=== PATIENT | female | born 1995 | race Caucasian/White ===

== ENCOUNTER 2021-06-25 08:28 | Emergency (ER) | payer OTHER ==
[2021-06-25 10:29] LABS: BASOPHIL 0.5 % (0-2); EOSINOPHIL 1.1 % (0-5); HCT 41.7 % (37.0-47.0); HGB 14.3 g/dl (12.5-16.0); LYMPHOCYTE 25.9 % (15-48); MCH 30.4 pg (25.0-31.0); MCHC 34.3 g/dL (32.0-36.0); MCV 88.5 fL (78.0-100.0); MPV 11.1 fL (6.0-9.5); NEUTROPHIL 64.3 % (41-80); NRBC 0; PLT 289 K/uL (150-400); RBC 4.71 M/uL (4.20-5.40); WBC 6.5 K/uL (4.0-10.5)
[2021-06-25 10:43] LABS: IRON % SATURATION 32.7 %SAT (20-50)
[2021-06-25 10:53] LABS: ALBUMIN 3.9 g/dL (3.4-5.0); BILIRUBIN - TOTAL 0.4 mg/dL (0.2-1.0); BUN/CREAT RATIO (CALC) 12.3 RATIO; C-REACTIVE PROTEIN 0.3 mg/dL (<=0.90); CREATININE 0.65 mg/dL (0.51-0.95); FT4 (FREE T4) 0.8 ng/dL (0.76-1.46); GLOBULIN (CALCULATION) 3.5 g/dL; MAGNESIUM 1.9 mg/dL (1.8-2.4); POTASSIUM 3.7 mmol/L (3.5-5.1); TOTAL PROTEIN 7.4 g/dL (6.4-8.2)
[2021-06-25 11:25] LABS: BILIRUBIN NEGATIVE (NEGATIVE); BLOOD NEGATIVE Ery/uL (NEGATIVE); CLARITY HAZY (CLEAR); COLOR YELLOW (YELLOW); GLUCOSE (U) NORMAL (NORMAL); LEUKOCYTES NEGATIVE Leu/uL (NEGATIVE); NITRITE NEGATIVE (NEGATIVE); PROTEIN NEGATIVE (NEGATIVE); UROBILINOGEN 0.2 mg/dL (0.2-1.0)
[2021-06-25] MEDS ORDERED: ANTIVERT25 MG PO (12:58)
== END 2021-06-25 13:16 | disposition home or self-care (01) ==
LOC: FER 08:28
PROVIDERS: Emergency Medicine
DX: O99.891 Other specified diseases and conditions complicating pregnancy (principal); O99.281 Endocrine, nutritional and metabolic diseases complicating pregnancy, first trimester; O99.331 Smoking (tobacco) complicating pregnancy, first trimester; R42 Dizziness and giddiness; F17.210 Nicotine dependence, cigarettes, uncomplicated; Z3A.01 Less than 8 weeks gestation of pregnancy; Z88.0 Allergy status to penicillin; Z88.6 Allergy status to analgesic agent; Z88.8 Allergy status to other drugs, medicaments and biological substances
CPT/HCPCS: 36415; 76801; 80053; 81003; 82728; 83540; 83550; 83615; 83735; 84439; 84443; 84702; 85025; 86140; 93005

== ENCOUNTER 2021-08-05 07:22 | Emergency (ER) | payer OTHER ==
[~2021-08-05 07:22] MED LIST: ANTIVERT25 MG PO
[2021-08-05 08:44] LABS: BASOPHIL 0.2 % (0-2); EOSINOPHIL 0.4 % (0-5); HCT 40.6 % (37.0-47.0); HGB 13.9 g/dl (12.5-16.0); LYMPHOCYTE 3.4 % (15-48); MCH 30.1 pg (25.0-31.0); MCHC 34.2 g/dL (32.0-36.0); MCV 87.9 fL (78.0-100.0); MONOCYTE 5.9 % (0-12); MPV 10.6 fL (6.0-9.5); NEUTROPHIL 89.4 % (41-80); NRBC 0; PLT 204 K/uL (150-400); RBC 4.62 M/uL (4.20-5.40); RDW 12.6 % (11.5-14.0); WBC 8.5 K/uL (4.0-10.5)
[2021-08-05 08:48] LABS: BILIRUBIN NEGATIVE (NEGATIVE); BLOOD NEGATIVE Ery/uL (NEGATIVE); CLARITY CLEAR (CLEAR); COLOR YELLOW (YELLOW); GLUCOSE (U) NORMAL (NORMAL); LEUKOCYTES NEGATIVE Leu/uL (NEGATIVE); NITRITE NEGATIVE (NEGATIVE); PROTEIN NEGATIVE (NEGATIVE); SPECIFIC GRAVITY 1.025 (1.001-1.030); UROBILINOGEN 0.2 mg/dL (0.2-1.0); pH 6.5 (5.0-9.0)
[2021-08-05 09:24] LABS: ALBUMIN 3.9 g/dL (3.4-5.0); ALKALINE PHOSHATASE 63 U/L (46-116); ALT 31 U/L (14-59); AST 22 U/L (15-37); BILIRUBIN - TOTAL 0.4 mg/dL (0.2-1.0); BUN 11 mg/dL (7-18); BUN/CREAT RATIO (CALC) 21.2 RATIO; CHLORIDE 102 mmol/L (98-107); CO2 (BICARBONATE) 25 mmol/L (21-32); CREATININE 0.52 mg/dL (0.51-0.95); GLOBULIN (CALCULATION) 3.5 g/dL; GLUCOSE 85 mg/dL (74-106); POTASSIUM 3.7 mmol/L (3.5-5.1); TOTAL PROTEIN 7.4 g/dL (6.4-8.2)
[2021-08-05 09:36] LABS: INFLUENZA A NAA NEGATIVE (NEGATIVE)
[2021-08-05 09:42] LABS: CORONAVIRUS 2019 SARS-COV-2 POSITIVE (NEGATIVE)
== END 2021-08-05 10:40 | disposition home or self-care (01) ==
LOC: FER 07:22
PROVIDERS: Emergency Medicine
DX: O98.511 Other viral diseases complicating pregnancy, first trimester (principal); O99.211 Obesity complicating pregnancy, first trimester; U07.1 COVID-19; Z3A.10 10 weeks gestation of pregnancy; Z88.0 Allergy status to penicillin; Z88.6 Allergy status to analgesic agent; Z88.8 Allergy status to other drugs, medicaments and biological substances
CPT/HCPCS: 36415; 71045; 80053; 81003; 84443; 84484; 85025; 93005; J1200; J7030; U0002

== ENCOUNTER 2021-12-24 15:17 | Day surgery (SDCO) | payer OTHER ==
[2021-12-24 16:28] LABS: BILIRUBIN NEGATIVE (NEGATIVE); BLOOD NEGATIVE Ery/uL (NEGATIVE); CLARITY CLEAR (CLEAR); COLOR YELLOW (YELLOW); GLUCOSE (U) TRACE mg/dL (NORMAL); HCT 36.8 % (37.0-47.0); HGB 12.6 g/dl (12.5-16.0); LEUKOCYTES NEGATIVE Leu/uL (NEGATIVE); MCH 29.7 pg (25.0-31.0); MCHC 34.2 g/dL (32.0-36.0); MCV 86.8 fL (78.0-100.0); MPV 11.5 fL (6.0-9.5); NITRITE NEGATIVE (NEGATIVE); PROTEIN NEGATIVE (NEGATIVE); RBC 4.24 M/uL (4.20-5.40); SPECIFIC GRAVITY 1.015 (1.001-1.030); UROBILINOGEN 0.2 mg/dL (0.2-1.0); WBC 12.3 K/uL (4.0-10.5); pH 6.5 (5.0-9.0)
[2021-12-24 16:49] LABS: ALBUMIN 2.8 g/dL (3.4-5.0); BILIRUBIN - TOTAL 0.3 mg/dL (0.2-1.0); BUN/CREAT RATIO (CALC) 9.8 RATIO; CREATININE 0.51 mg/dL (0.51-0.95); GLOBULIN (CALCULATION) 3.8 g/dL; POTASSIUM 3.3 mmol/L (3.5-5.1); TOTAL PROTEIN 6.6 g/dL (6.4-8.2); URIC ACID 3.7 mg/dL (2.6-6.2)
[2021-12-24 16:50] LABS: PROTEIN:CREATININE 0.16 RATIO; URINE CREATININE 112.6 mg/dL (29.00-226.00); URINE TOTAL PROTEIN-RANDOM 18.1 mg/dL (<11.9)
[2021-12-24 17:29] LABS: AMPHETAMINES NEGATIVE (NEGATIVE); BARBITURATES NEGATIVE (NEGATIVE); ECSTASY (MDMA) NEGATIVE (NEGATIVE); MARIJUANA (THC) NEGATIVE (NEGATIVE); METHADONE NEGATIVE (NEGATIVE); OPIATES NEGATIVE (NEGATIVE); OXYCODONE NEGATIVE (NEGATIVE)
== END 2021-12-24 20:30 | disposition home or self-care (01) ==
LOC: FOB 15:17 → FOD 15:17 → FOB 15:43
PROVIDERS: ADMIT Obstetrics & Gynecology
DX: O10.913 Unspecified pre-existing hypertension complicating pregnancy, third trimester (principal); O99.343 Other mental disorders complicating pregnancy, third trimester; Z3A.30 30 weeks gestation of pregnancy; F41.9 Anxiety disorder, unspecified; Z87.891 Personal history of nicotine dependence; Z88.1 Allergy status to other antibiotic agents; Z88.6 Allergy status to analgesic agent; Z88.8 Allergy status to other drugs, medicaments and biological substances
CPT/HCPCS: 36415; 80053; 80305; 81003; 82570; 83615; 84156; 84550; G0378; J7120

== ENCOUNTER 2022-01-08 14:54 | Emergency (ER) | payer OTHER ==
[2022-01-08 16:06] LABS: BASOPHIL 0.3 % (0-2); EOSINOPHIL 0.6 % (0-5); HCT 39.5 % (37.0-47.0); HGB 13.3 g/dl (12.5-16.0); LYMPHOCYTE 11.3 % (15-48); MCH 28.7 pg (25.0-31.0); MCHC 33.7 g/dL (32.0-36.0); MCV 85.3 fL (78.0-100.0); MONOCYTE 5.6 % (0-12); MPV 11.6 fL (6.0-9.5); NEUTROPHIL 81.3 % (41-80); NRBC 0; PLT 235 K/uL (150-400); RBC 4.63 M/uL (4.20-5.40); RDW 13.3 % (11.5-14.0); WBC 12.7 K/uL (4.0-10.5)
[2022-01-08 16:27] LABS: BUN/CREAT RATIO (CALC) 5.8 RATIO; CREATININE 0.52 mg/dL (0.51-0.95); POTASSIUM 3.4 mmol/L (3.5-5.1)
[2022-01-08 17:53] LABS: BILIRUBIN NEGATIVE (NEGATIVE); BLOOD NEGATIVE Ery/uL (NEGATIVE); CLARITY CLEAR (CLEAR); COLOR YELLOW (YELLOW); GLUCOSE (U) 3+ mg/dL (NORMAL); LEUKOCYTES NEGATIVE Leu/uL (NEGATIVE); NITRITE NEGATIVE (NEGATIVE); PROTEIN NEGATIVE (NEGATIVE); UROBILINOGEN 0.2 mg/dL (0.2-1.0)
[2022-01-08 17:59] LABS: ALBUMIN 2.7 g/dL (3.4-5.0); BILIRUBIN - TOTAL 0.2 mg/dL (0.2-1.0); CREATININE 0.5 mg/dL (0.51-0.95); GLOBULIN (CALCULATION) 3.7 g/dL; POTASSIUM 3.3 mmol/L (3.5-5.1); TOTAL PROTEIN 6.4 g/dL (6.4-8.2)
[2022-01-09] MEDS ORDERED: HYDRALAZINE 10M10 MG PO (06:28)
== END 2022-01-08 19:07 | disposition home or self-care (01) ==
LOC: FER 14:54
PROVIDERS: Nurse Practitioner Family
DX: O99.891 Other specified diseases and conditions complicating pregnancy (principal); O9A.213 Injury, poisoning and certain other consequences of external causes complicating pregnancy, third trimester; O10.913 Unspecified pre-existing hypertension complicating pregnancy, third trimester; R07.89 Other chest pain; R06.02 Shortness of breath; T46.1X5A Adverse effect of calcium-channel blockers, initial encounter; Z28.310 Unvaccinated for COVID-19; Z3A.32 32 weeks gestation of pregnancy; Z88.0 Allergy status to penicillin; Z88.6 Allergy status to analgesic agent; Z88.8 Allergy status to other drugs, medicaments and biological substances
CPT/HCPCS: 36415; 80048; 80053; 81003; 85025; J1200; J2930; J7030

== ENCOUNTER 2022-01-09 04:10 | Emergency (ER) | payer OTHER ==
[2022-01-09 04:51] LABS: BASOPHIL 0.1 % (0-2); EOSINOPHIL 0 % (0-5); HCT 35.4 % (37.0-47.0); HGB 11.8 g/dl (12.5-16.0); LYMPHOCYTE 9.7 % (15-48); MCH 28.7 pg (25.0-31.0); MCHC 33.3 g/dL (32.0-36.0); MCV 86.1 fL (78.0-100.0); MONOCYTE 5.6 % (0-12); MPV 11.8 fL (6.0-9.5); NEUTROPHIL 83.3 % (41-80); NRBC 0; PLT 241 K/uL (150-400); RBC 4.11 M/uL (4.20-5.40); RDW 13.2 % (11.5-14.0); WBC 15.8 K/uL (4.0-10.5)
[2022-01-09 05:06] LABS: ALBUMIN 2.6 g/dL (3.4-5.0); BILIRUBIN - TOTAL 0.3 mg/dL (0.2-1.0); BUN/CREAT RATIO (CALC) 10.2 RATIO; CREATININE 0.49 mg/dL (0.51-0.95); GLOBULIN (CALCULATION) 3.7 g/dL; POTASSIUM 3.6 mmol/L (3.5-5.1); TOTAL PROTEIN 6.3 g/dL (6.4-8.2)
[2022-01-09 06:14] LABS: BILIRUBIN NEGATIVE (NEGATIVE); BLOOD NEGATIVE Ery/uL (NEGATIVE); CLARITY CLEAR (CLEAR); COLOR YELLOW (YELLOW); GLUCOSE (U) 2+ mg/dL (NORMAL); LEUKOCYTES NEGATIVE Leu/uL (NEGATIVE); NITRITE NEGATIVE (NEGATIVE); PROTEIN NEGATIVE (NEGATIVE); UROBILINOGEN 0.2 mg/dL (0.2-1.0)
[2022-01-09 06:20] LABS: BACTERIA 1+
[2022-01-09] MEDS ORDERED: HYDRALAZINE 10M10 MG PO (06:28)
== END 2022-01-09 06:30 | disposition home or self-care (01) ==
LOC: FER 04:10
PROVIDERS: Emergency Medicine
DX: R07.89 Other chest pain (principal); F41.9 Anxiety disorder, unspecified
CPT/HCPCS: 36415; 80053; 81001; 84484; 85025; 93005; J7030

== ENCOUNTER 2022-02-02 09:18 | Inpatient (IN) | payer OTHER ==
[~2022-02-02] VITALS: Ht 162.6 cm; Wt 105.7 kg
[~2022-02-02 09:18] MED LIST changes: +HYDRALAZINE 10M10 MG PO
[2022-02-02 09:48] LABS: BILIRUBIN NEGATIVE (NEGATIVE); BLOOD NEGATIVE Ery/uL (NEGATIVE); CLARITY CLEAR (CLEAR); COLOR YELLOW (YELLOW); GLUCOSE (U) NORMAL (NORMAL); LEUKOCYTES 1+ Leu/uL (NEGATIVE); NITRITE NEGATIVE (NEGATIVE); PROTEIN NEGATIVE (NEGATIVE); SPECIFIC GRAVITY 1.015 (1.001-1.030); UROBILINOGEN 0.2 mg/dL (0.2-1.0); pH 6.5 (5.0-9.0)
[2022-02-02 09:52] LABS: AMPHETAMINES NEGATIVE (NEGATIVE); BARBITURATES NEGATIVE (NEGATIVE); ECSTASY (MDMA) NEGATIVE (NEGATIVE); MARIJUANA (THC) NEGATIVE (NEGATIVE); METHADONE NEGATIVE (NEGATIVE); OPIATES NEGATIVE (NEGATIVE); OXYCODONE NEGATIVE (NEGATIVE)
[2022-02-02 09:56] LABS: BACTERIA 1+
[2022-02-02 10:37] LABS: HCT 32.5 % (37.0-47.0); HGB 10.8 g/dl (12.5-16.0); MCH 27.2 pg (25.0-31.0); MCHC 33.2 g/dL (32.0-36.0); MCV 81.9 fL (78.0-100.0); MPV 11.1 fL (6.0-9.5); RBC 3.97 M/uL (4.20-5.40); RDW 13.6 % (11.5-14.0)
[2022-02-02 10:58] LABS: PROTEIN:CREATININE 0.29 RATIO; URINE CREATININE 105.08 mg/dL (29.00-226.00)
[2022-02-02 11:31] LABS: ALBUMIN 2.6 g/dL (3.4-5.0); BILIRUBIN - TOTAL 0.4 mg/dL (0.2-1.0); BUN/CREAT RATIO (CALC) 9.1 RATIO; CREATININE 0.55 mg/dL (0.51-0.95); GLOBULIN (CALCULATION) 2.9 g/dL; POTASSIUM 3.3 mmol/L (3.5-5.1); TOTAL PROTEIN 5.5 g/dL (6.4-8.2)
== END 2022-02-02 14:34 | disposition home or self-care (01) | DRG 833 ==
LOC: FOB 09:18 → FOD 09:18 → FOB 10:17
PROVIDERS: ADMIT Obstetrics & Gynecology
DX: O16.3 Unspecified maternal hypertension, third trimester (principal); O99.343 Other mental disorders complicating pregnancy, third trimester; F41.9 Anxiety disorder, unspecified; F32.A Depression, unspecified; O99.213 Obesity complicating pregnancy, third trimester; Z3A.36 36 weeks gestation of pregnancy; Z87.891 Personal history of nicotine dependence; Z86.16 Personal history of COVID-19
CPT/HCPCS: 36415; 80053; 80305; 81001; 82570; 83615; 84156; 84550; J0360

== ENCOUNTER 2022-02-15 19:57 | Inpatient (IN) | payer OTHER ==
[~2022-02-15] VITALS: Ht 162.6 cm; Wt 105.7 kg
[2022-02-15 20:53] LABS: BILIRUBIN NEGATIVE (NEGATIVE); BLOOD NEGATIVE Ery/uL (NEGATIVE); CLARITY CLEAR (CLEAR); COLOR YELLOW (YELLOW); GLUCOSE (U) NORMAL (NORMAL); LEUKOCYTES NEGATIVE Leu/uL (NEGATIVE); NITRITE NEGATIVE (NEGATIVE); PROTEIN NEGATIVE (NEGATIVE); UROBILINOGEN 0.2 mg/dL (0.2-1.0); pH 6.5 (5.0-9.0)
[2022-02-15 20:53] LABS: HCT 33.3 % (37.0-47.0); HGB 10.8 g/dl (12.5-16.0); MCH 26.2 pg (25.0-31.0); MCHC 32.4 g/dL (32.0-36.0); MCV 80.6 fL (78.0-100.0); MPV 11.9 fL (6.0-9.5); RBC 4.13 M/uL (4.20-5.40); RDW 14.3 % (11.5-14.0); WBC 9.6 K/uL (4.0-10.5)
[2022-02-15 21:00] LABS: AMPHETAMINES NEGATIVE (NEGATIVE); BARBITURATES NEGATIVE (NEGATIVE); ECSTASY (MDMA) NEGATIVE (NEGATIVE); MARIJUANA (THC) NEGATIVE (NEGATIVE); METHADONE NEGATIVE (NEGATIVE); OPIATES NEGATIVE (NEGATIVE); OXYCODONE NEGATIVE (NEGATIVE)
[2022-02-15 21:11] LABS: ALBUMIN 2.7 g/dL (3.4-5.0); BILIRUBIN - TOTAL 0.4 mg/dL (0.2-1.0); BUN/CREAT RATIO (CALC) 9.1 RATIO; CREATININE 0.55 mg/dL (0.51-0.95); GLOBULIN (CALCULATION) 3.5 g/dL; POTASSIUM 3.3 mmol/L (3.5-5.1); PROTEIN:CREATININE 0.34 RATIO; TOTAL PROTEIN 6.2 g/dL (6.4-8.2); URIC ACID 4.7 mg/dL (2.6-6.2); URINE CREATININE 96.79 mg/dL (29.00-226.00); URINE TOTAL PROTEIN-RANDOM 33.2 mg/dL (<11.9)
[2022-02-17] MEDS ORDERED: PERCOCET 5-3251 EACH PO (20:55)
[2022-02-18 07:39] LABS: HCT 29.6 % (37.0-47.0); HGB 9.3 g/dl (12.5-16.0); MCH 25.8 pg (25.0-31.0); MCHC 31.4 g/dL (32.0-36.0); MCV 82.2 fL (78.0-100.0); MPV 12.2 fL (6.0-9.5); RBC 3.6 M/uL (4.20-5.40); WBC 11.6 K/uL (4.0-10.5)
== END 2022-02-19 14:22 | disposition home or self-care (01) | DRG 788 ==
LOC: FOB 19:57
PROVIDERS: Obstetrics & Gynecology; ADMIT Specialist
PROC: 3E0P7VZ Introduction of Hormone into Female Reproductive, Via Natural or Artificial Opening (ICD-10-PCS; 2022-02-16)
PROC: 3E033VJ Introduction of Other Hormone into Peripheral Vein, Percutaneous Approach (ICD-10-PCS; 2022-02-16)
PROC: 10D00Z1 Extraction of Products of Conception, Low, Open Approach (ICD-10-PCS; principal; 2022-02-17 19:30)
DX: O10.92 Unspecified pre-existing hypertension complicating childbirth (principal); O62.1 Secondary uterine inertia; O99.214 Obesity complicating childbirth; O35.8XX0 Maternal care for other (suspected) fetal abnormality and damage, not applicable or unspecified; Z37.0 Single live birth; Z3A.38 38 weeks gestation of pregnancy; O99.344 Other mental disorders complicating childbirth; F41.9 Anxiety disorder, unspecified; O99.284 Endocrine, nutritional and metabolic diseases complicating childbirth; E28.2 Polycystic ovarian syndrome; Z87.891 Personal history of nicotine dependence; Z88.1 Allergy status to other antibiotic agents; Z86.16 Personal history of COVID-19; Z79.82 Long term (current) use of aspirin; Z79.899 Other long term (current) drug therapy
CPT/HCPCS: 36415; 80053; 80305; 81003; 82570; 83615; 84156; 84550; 86850; 86900; 86901; J0456; J0595; J0690; J1885; J2001; J2274; J2550; J2795; J7050; J7120